=== PATIENT | male | born 1965 | race Caucasian/White ===

== ENCOUNTER 2018-10-19 23:08 | Emergency (ER) | payer OTHER ==
[~2018-10-19] VITALS: Ht 180.3 cm; Wt 86.2 kg
[~2018-10-19 23:08] MED LIST: Aldactone25 MG; Cipro500 MG PO; DOCU100 PO; Flagyl500 MG PO; IBUP600 PO; LACT10SY; LACT10SY PO; LEVO-T25 MCG; SPIR25 PO; TRAM50; [UNRECOGNIZED DRUG - REMARK]
[2018-10-19] MEDS ORDERED: OXYC5 PO (23:35)
[2018-10-19] MEDS ORDERED: Spironolactone25 MG PO (23:35)
[2018-10-20 00:05] LABS: BASOPHILS ABSOLUTE AUTO 0.02 K/mm3 (0.00-0.23); BASOPHILS PERCENT AUTO 1 % (0-2); EOSINOPHILS ABSOLUTE AUTO 0.11 K/mm3 (0.00-0.68); EOSINOPHILS PERCENT AUTO 3 % (0-6); Hematocrit 31.3 % (37.0-53.0); Hemoglobin 10.9 g/dL (13.5-17.5); IMMATURE GRAN ABSOLUTE AUTO 0.02 K/mm3 (0.00-0.10); IMMATURE GRAN PERCENT AUTO 1 % (0-1); LYMPHOCYTES ABSOLUTE AUTO 0.56 K/mm3 (0.84-5.20); LYMPHOCYTES PERCENT AUTO 15 % (21-46); MONOCYTES ABSOLUTE AUTO 0.29 K/mm3 (0.16-1.47); MONOCYTES PERCENT AUTO 8 % (4-13); Mean Corpuscular HGB 33.3 pg (26.0-34.0); Mean Corpuscular HGB Conc 34.8 g/dL (31.5-36.5); Mean Corpuscular Volume 96 fL (80-100); NEUTROPHILS PERCENT AUTO 73 % (41-73); RDW Coefficient Variation 13.9 % (11.7-14.2); RDW Standard Deviation 49.1 fL (35.1-46.3); Red Blood Cell Count 3.27 M/mm3 (4.30-5.90)
[2018-10-20 00:07] LABS: Platelet Count 40 K/mm3 (150-400)
[2018-10-20 00:17] LABS: International Normalized Ratio 1.28; Prothrombin Time Results 13.3 Sec (9.7-11.5)
[2018-10-20 00:24] LABS: Alanine Aminotransfer (ALT/SGP 109 U/L (12-78); Albumin, Blood 2.4 g/dL (3.4-5.0); Albumin/Globulin Ratio 0.5 (0.8-1.8); Alk Phos 126 U/L (50-136); Anion Gap 4 mmol/L (6-16); Aspartate Aminotrans (AST/SGOT 115 U/L (12-37); Bilirubin, Total 1.8 mg/dL (0.1-1.0); Blood Urea Nitrogen 15 mg/dL (8-24); Bun/Creatinine Ratio 19.4 (12.0-20.0); CO2, Blood 32 mmol/L (21-32); Calcium, Blood 8.1 mg/dL (8.5-10.1); Chloride, Blood 104 mmol/L (98-108); Creatinine, Blood 0.77 mg/dL (0.60-1.20); Globulin, Blood 4.8 g/dL (2.2-4.0); Glomerular Filtration Rate >60 (60-); Glucose, Blood 177 mg/dL (70-99); Potassium, Blood 4.9 mmol/L (3.5-5.5); Sodium, Blood 140 mmol/L (136-145); Total Protein, Blood 7.2 g/dL (6.4-8.2)
== END 2018-10-20 02:22 | disposition home or self-care (01) ==
LOC: ER 23:08
PROVIDERS: Physician Assistant
DX: S01.01XA Laceration without foreign body of scalp, initial encounter (principal); D69.6 Thrombocytopenia, unspecified; D61.818 Other pancytopenia; Z85.05 Personal history of malignant neoplasm of liver; F17.210 Nicotine dependence, cigarettes, uncomplicated; Z79.899 Other long term (current) drug therapy; V00.831A Fall from motorized mobility scooter, initial encounter
CPT/HCPCS: 12002; 36415; 70450; 74177; 80053; 85025; 85610; 90471; 90714; 99284-25; Q9967

== ENCOUNTER 2019-02-25 19:37 | Emergency (ER) | payer OTHER ==
[~2019-02-25] VITALS: Ht 180.3 cm; Wt 87.5 kg
[~2019-02-25 19:37] MED LIST changes: +OXYC5 PO; +Spironolactone25 MG PO
[2019-02-25] MEDS ORDERED: Lasix20 MG (20:12)
[2019-02-26] MEDS ORDERED: ONDA4ODT MM (18:55)
[2019-02-26] MEDS ORDERED: Roxicodone5 MG PO (18:55)
[2019-03-03] MEDS ORDERED: LACT10SY PO (09:19)
== END 2019-02-25 20:25 | disposition left against medical advice (07) ==
LOC: ER 19:37
DX: Z53.21 Procedure and treatment not carried out due to patient leaving prior to being seen by health care provider (principal)

== ENCOUNTER 2019-02-26 14:28 | Emergency (ER) | payer OTHER ==
[~2019-02-26] VITALS: Ht 180.3 cm; Wt 86.2 kg
[~2019-02-26 14:28] MED LIST changes: +Lasix20 MG
[2019-02-26 15:43] LABS: BASOPHILS ABSOLUTE AUTO 0.02 K/mm3 (0.00-0.23); BASOPHILS PERCENT AUTO 1 % (0-2); EOSINOPHILS ABSOLUTE AUTO 0.05 K/mm3 (0.00-0.68); EOSINOPHILS PERCENT AUTO 2 % (0-6); Hematocrit 33.5 % (37.0-53.0); Hemoglobin 11.6 g/dL (13.5-17.5); IMMATURE GRAN ABSOLUTE AUTO 0.01 K/mm3 (0.00-0.10); IMMATURE GRAN PERCENT AUTO 0 % (0-1); LYMPHOCYTES ABSOLUTE AUTO 0.54 K/mm3 (0.84-5.20); LYMPHOCYTES PERCENT AUTO 17 % (21-46); MONOCYTES ABSOLUTE AUTO 0.29 K/mm3 (0.16-1.47); MONOCYTES PERCENT AUTO 9 % (4-13); Mean Corpuscular HGB 32.1 pg (26.0-34.0); Mean Corpuscular HGB Conc 34.6 g/dL (31.5-36.5); Mean Corpuscular Volume 93 fL (80-100); Mean Platelet Volume 10.9 fL (9.1-12.4); NEUTROPHILS ABSOLUTE AUTO 2.22 K/mm3 (1.96-9.15); NEUTROPHILS PERCENT AUTO 71 % (41-73); RDW Standard Deviation 51.1 fL (35.1-46.3); Red Blood Cell Count 3.61 M/mm3 (4.30-5.90); White Blood Cell Count 3.13 K/mm3 (4.00-11.30)
[2019-02-26 15:48] LABS: Platelet Count 49 K/mm3 (150-400)
[2019-02-26 15:59] LABS: Alanine Aminotransfer (ALT/SGP 167 U/L (12-78); Albumin, Blood 2.1 g/dL (3.4-5.0); Albumin/Globulin Ratio 0.4 (0.8-1.8); Alk Phos 163 U/L (50-136); Anion Gap 4 mmol/L (6-16); Aspartate Aminotrans (AST/SGOT 238 U/L (12-37); Bilirubin, Total 1.8 mg/dL (0.1-1.0); Blood Urea Nitrogen 15 mg/dL (8-24); Bun/Creatinine Ratio 22.7 (12.0-20.0); CO2, Blood 28 mmol/L (21-32); Calcium, Blood 8.1 mg/dL (8.5-10.1); Chloride, Blood 104 mmol/L (98-108); Creatinine, Blood 0.66 mg/dL (0.60-1.20); Globulin, Blood 5.2 g/dL (2.2-4.0); Glomerular Filtration Rate >60 (60-); Glucose, Blood 257 mg/dL (70-99); Potassium, Blood 3.9 mmol/L (3.5-5.5); Sodium, Blood 136 mmol/L (136-145); Total Protein, Blood 7.3 g/dL (6.4-8.2)
[2019-02-26] MEDS ORDERED: ONDA4ODT MM (18:55)
[2019-02-26] MEDS ORDERED: Roxicodone5 MG PO (18:55)
[2019-03-03] MEDS ORDERED: LACT10SY PO (09:19)
== END 2019-02-26 20:30 | disposition home or self-care (01) ==
LOC: ER 14:28
PROVIDERS: Physician Assistant
DX: K70.31 Alcoholic cirrhosis of liver with ascites (principal); F17.210 Nicotine dependence, cigarettes, uncomplicated; Z79.899 Other long term (current) drug therapy
CPT/HCPCS: 36415; 80053; 83690; 85025; 93005; 93010; 96374; 96375; 99284-25; J2405; J3010

== ENCOUNTER 2019-03-07 13:35 | Day surgery (SDC) | payer OTHER ==
[~2019-03-07] VITALS: Ht 180.3 cm; Wt 80.3 kg
[~2019-03-07 13:35] MED LIST changes: +ONDA4ODT MM; +Roxicodone5 MG PO
--- NOTE | 2019-03-07 15:05 | NUR ---
03/07/19 150Giuliana [place] O2 10L VIA POM MASK
== END 2019-03-07 15:49 | disposition home or self-care (01) ==
LOC: ORSCSDS 13:35
PROVIDERS: Internal Medicine Gastroenterology
PROC: 0DJ08ZZ Inspection of Upper Intestinal Tract, Via Natural or Artificial Opening Endoscopic (ICD-10-PCS; principal; 2019-03-07 14:45)
DX: K74.60 Unspecified cirrhosis of liver (principal); I85.00 Esophageal varices without bleeding; K76.6 Portal hypertension; K31.89 Other diseases of stomach and duodenum; Z79.899 Other long term (current) drug therapy
CPT/HCPCS: J2250; J2704; J7120

== ENCOUNTER 2019-05-03 13:21 | Inpatient (IN) | payer OTHER ==
[~2019-05-03] VITALS: Ht 167.6 cm; Wt 78.3 kg
[2019-05-03 14:25] LABS: BASOPHILS ABSOLUTE AUTO 0.02 K/mm3 (0.00-0.23); BASOPHILS PERCENT AUTO 1 % (0-2); EOSINOPHILS ABSOLUTE AUTO 0.07 K/mm3 (0.00-0.68); EOSINOPHILS PERCENT AUTO 2 % (0-6); Hemoglobin 12.7 g/dL (13.5-17.5); IMMATURE GRAN ABSOLUTE AUTO 0.01 K/mm3 (0.00-0.10); IMMATURE GRAN PERCENT AUTO 0 % (0-1); International Normalized Ratio 1.15; LYMPHOCYTES ABSOLUTE AUTO 0.65 K/mm3 (0.84-5.20); LYMPHOCYTES PERCENT AUTO 18 % (21-46); MONOCYTES ABSOLUTE AUTO 0.26 K/mm3 (0.16-1.47); MONOCYTES PERCENT AUTO 7 % (4-13); Mean Corpuscular HGB 33.1 pg (26.0-34.0); Mean Corpuscular HGB Conc 36.3 g/dL (31.5-36.5); Mean Corpuscular Volume 91 fL (80-100); NEUTROPHILS ABSOLUTE AUTO 2.65 K/mm3 (1.96-9.15); NEUTROPHILS PERCENT AUTO 72 % (41-73); NRBC ABSOLUTE 0.02 K/mm3 (0.00-0.02); NRBC Auto 0.5 /100 WBC (0.0-0.2); Prothrombin Time Results 12.2 Sec (9.7-11.5); RDW Coefficient Variation 14.6 % (11.7-14.2); RDW Standard Deviation 49.1 fL (35.1-46.3); Red Blood Cell Count 3.84 M/mm3 (4.30-5.90); White Blood Cell Count 3.66 K/mm3 (4.00-11.30)
[2019-05-03 14:26] LABS: Source, Urine Clean Catch
[2019-05-03 14:31] LABS: Platelet Count 36 K/mm3 (150-400)
[2019-05-03 14:33] LABS: Alanine Aminotransfer (ALT/SGP 71 U/L (12-78); Albumin, Blood 2.4 g/dL (3.4-5.0); Albumin/Globulin Ratio 0.5 (0.8-1.8); Alk Phos 138 U/L (50-136); Anion Gap 5 mmol/L (6-16); Aspartate Aminotrans (AST/SGOT 81 U/L (12-37); Bilirubin, Total 2.3 mg/dL (0.1-1.0); Blood Urea Nitrogen 17 mg/dL (8-24); Bun/Creatinine Ratio 18.3 (12.0-20.0); CO2, Blood 28 mmol/L (21-32); Calcium, Blood 8.9 mg/dL (8.5-10.1); Chloride, Blood 103 mmol/L (98-108); Creatinine, Blood 0.93 mg/dL (0.60-1.20); Ethanol (Alcohol), Blood, Med <3 mg/dL; Globulin, Blood 5.3 g/dL (2.2-4.0); Glomerular Filtration Rate >60 (60-); Glucose, Blood 387 mg/dL (70-99); Sodium, Blood 136 mmol/L (136-145); Total Protein, Blood 7.7 g/dL (6.4-8.2); Troponin I <0.015 ng/mL (0.000-0.040)
[2019-05-03 14:34] LABS: Bilirubin, Urine Neg (Neg); Blood, Urine 4+ (Neg); Glucose Qualitative, Urine 4+ (Neg); Ketones, Urine 1+ (Neg); Leukocyte Esterase, Urine Neg (Neg); Nitrite, Urine Neg (Neg); Protein, Urine Neg (Neg); Urobilinogen, Urine 3+ (Normal)
[2019-05-03 14:46] LABS: U Amphetamine Screen DETECTED; U Barbituate Screen Not Detected; U Benzodiazapine Screen Not Detected; U Buprenorphine Screen Not Detected; U Cannabinoids Screen Not Detected; U Cocaine Screen Not Detected; U Methadone Screen Not Detected; U Methamphetamine Screen DETECTED; U Opiates Screen DETECTED; U Oxycodone Screen Not Detected; U Phencyclidine Screen Not Detected; U Propoxyphene Screen Not Detected
[2019-05-03 14:48] LABS: Appearance, Urine Clear (Clear); Color, Urine Yellow (P-Yellow)
[2019-05-03 14:50] LABS: Bacteria Not Seen /hpf; Mucus Light (0-Heavy); Squamous Epithelial Cells Few /hpf (Few); White Blood Cells, Urine Not Seen /hpf (0-5)
[2019-05-03] MEDS ORDERED: FURO40 PO (15:08)
[2019-05-03] MEDS ORDERED: ONDA4ODT MM (15:08)
[2019-05-03] MEDS ORDERED: SPIR50 PO (15:18)
[2019-05-03] MEDS ORDERED: Nadolol40 MG PO (15:18)
--- NOTE | 2019-05-03 17:00 | NUR ---
PT ARRIVED FROM ED HEAVILY SEDATED VEW SCORE OF 2 ON ADMIT VITALS. PT WILL MOVE EXTREMITIES A LITTLE WHEN STAFF MOVE HIM OTHERWISE UNRESPONSIVE. PT PLACED ON TELE, RECTAL TUBE IN PLACE. PT ADMITTED THROUGH THE ED FOR HEPATIC ENCEPHALOPATHY, PT TOX SCREEN POSSITIVE FOR METH AND ANPHETAMINE. PT RECIEVED A B52 IN THE ED AND IS CURRENTLY NOT CONCIOUS ENOUGH TO DETERMINE COGNITION ONLY OBJECTIVE ASSESSMENT AVAILABLE AT THIS TIME WILL CTM. PT CONTINUES TO BREATHE EVEN AND UNLABORED BREATHING AND IS RUNNING NSR AT 87 PER SWAGE TOOLSETTER.
--- NOTE | 2019-05-03 17:30 | NUR ---
WENT IN TO CHANGE THE PT WITH TRUCK DRIVER SUPERVISOR PT COMPLETELY LETHARGIC UNABLE TO ROUSE NO RESPONSE TO STERNAL RUB, EXTENSION TO PAIN, KVNG SCALE SCORE IS LOW D/T SEDATION. RECTAL TUBE IN PLACE WITH A SMALL AMOUNT OF STOOL NOTED IN IT AT THIS TIME.
--- NOTE | 2019-05-03 18:00 | NUR ---
PT HAS LACTULOSE ORDERED PT HOWEVER, PT DOES NOT HAVE A NG TUBE IN PLACE AND IS NOT CONCIOUS ENOUGH TO HAVE AN NG TUBE PLACED SAFELY WILL CALL DR TO CLARIFY THE ORDER FOR PT TO RECIEVE A DOSE OF LACTULOSE NOW. PT STILL UNRESPONSIVE, BREATHING E/U, NSR ON TELE.
--- NOTE | 2019-05-03 18:19 | NUR ---
CALLED DR SHERIDAN- PT LACTIC ACID RESULT CAME BACK CRITICALLY HIGH AT 3.0 PT CURRENTLY RUNNING LR AT 100ML/HR. PT REMAINS UNRESPONSIVE HE WAS WHEN HE ARRIVED. ORDER FOR LACTULOSE VIA TUBE NOT GIVEN IN THE ED. PT HAS ORDER FOR NG TUBE NOT IN PLACE PT IS UNCONCIOUS AND UNABLE TO SWALLOW TUBE. RECIEVED A VERBAL ORDER FOR LACTULOSE ENEMA. PLACED THE ORDER THOUGH ORDER MANAGEMENT WITH NIGHT RN TIMO PRESENT NIGHT RN WILL ADMINISTER.
--- NOTE | 2019-05-03 20:31 | NUR ---
SHIFT SUMMARY- BEDSIDE REPORT COMPLETED WITH NIGHT RN TIMO. PT STILL UNCONCIOUS KVNG SCORE OF 4 SINCE ADMIT. PT UNRESPONSIVE; EXTENSION TO PAIN RESPONSE; NO EYE OPENING. PT FLACCID ON ROLL AND CHANGE. DR AWARE OF PT LACTIC CRITICAL NIGHT RN IS AWARE WELL. LR RUNNING AT 100ML/HR.
[2019-05-04 00:42] LABS: PCO2 Arterial 25.6 mmHg (35-45); PO2 Arterial 91.1 mmHg (80-100); pH Blood Arterial 7.57 (7.35-7.45)
[2019-05-04 00:46] LABS: BASOPHILS ABSOLUTE AUTO 0.02 K/mm3 (0.00-0.23); BASOPHILS PERCENT AUTO 0 % (0-2); EOSINOPHILS ABSOLUTE AUTO 0.04 K/mm3 (0.00-0.68); EOSINOPHILS PERCENT AUTO 1 % (0-6); Hematocrit 32.9 % (37.0-53.0); Hemoglobin 12.3 g/dL (13.5-17.5); IMMATURE GRAN ABSOLUTE AUTO 0.02 K/mm3 (0.00-0.10); IMMATURE GRAN PERCENT AUTO 0 % (0-1); LYMPHOCYTES PERCENT AUTO 21 % (21-46); MONOCYTES ABSOLUTE AUTO 0.41 K/mm3 (0.16-1.47); MONOCYTES PERCENT AUTO 8 % (4-13); Mean Corpuscular HGB 33.3 pg (26.0-34.0); Mean Corpuscular HGB Conc 37.4 g/dL (31.5-36.5); Mean Corpuscular Volume 89 fL (80-100); Mean Platelet Volume 12.8 fL (9.1-12.4); NEUTROPHILS PERCENT AUTO 69 % (41-73); Platelet Count 58 K/mm3 (150-400); RDW Coefficient Variation 14.5 % (11.7-14.2); RDW Standard Deviation 46.5 fL (35.1-46.3); Red Blood Cell Count 3.69 M/mm3 (4.30-5.90); White Blood Cell Count 5.19 K/mm3 (4.00-11.30)
--- NOTE | 2019-05-04 00:50 | NUR ---
ASSUMED CARE NOTE: ASSUMED CARE OF PT @ 0050, RECEVIED REPORT FROM TIMO FREDERICK. PT ARRIVED TO UNIT VIA STRETCHER, ON RA. PT WAS NOT AROUSABLE TO VERBAL STIMULI, HOWEVER RESPONDING TO PAINFUL STIMULI. PT IS COARSE T/O. PT HAS BEEN IN SINUS RHYTHM TO SINUS TACH WITH HR BETWEEN 90-110. BOWEL TONES HEARD IN ALL FOUR QUADRANTS. RECTAL TUBE IN PLACE DRAINING DARK RED FECES, BLOOD CLOTS NOTED, AWARE. WILL BE TAKING PT TO CT SOON. HOSPITALIST NIECY AT BED SIDE.
[2019-05-04 01:05] LABS: Anion Gap 6 mmol/L (6-16); Blood Urea Nitrogen 17 mg/dL (8-24); Bun/Creatinine Ratio 18.1 (12.0-20.0); CO2, Blood 23 mmol/L (21-32); Calcium, Blood 8.6 mg/dL (8.5-10.1); Chloride, Blood 111 mmol/L (98-108); Creatinine, Blood 0.94 mg/dL (0.60-1.20); Glomerular Filtration Rate >60 (60-); Glucose, Blood 301 mg/dL (70-99); Magnesium, Blood 1.6 mg/dL (1.6-2.4); Potassium, Blood 4.6 mmol/L (3.5-5.5); Sodium, Blood 140 mmol/L (136-145)
--- NOTE | 2019-05-04 01:13 | NUR ---
2129 Received report from Alanis FREDERICK on day shift. Pt just recently admitted to floor. Pt is obtunded, respirtions 16, sl irregular respirations. Pt vew score was a 4, Pt is on tele. sinus tach rate low 100's. Pt is not responsive to fingernail press or sternal rub. Alanis states this is how he has been since admit. Pt is missing left eye. Rt pupil was reactive to light. Pt was given lactulose enema in stages through the rectal tube. Pt was able to hold some of the lactulose. Pt does have some marroon colored liquid in rectal tube after it was placed in ED, small amount. Will continue to monitor tube output. Pt is incontinent of lg amounts of urine. Did talk with sister Aubrie about pt status at this time.
--- NOTE | 2019-05-04 01:29 | NUR ---
05/03/19 2345 Karyn Wolf PIPE FITTER was asked to come see pt due to continued poor responsiveness. Pt does respond more to feet being touched and finger press, pt pulls back but does not talk or open eyes. Breath sounds remain course in upper airway. Pt continues to have irregular respirations. HOB has been up for safety. Vital signs and tele rhythm remain stable when rechecked at 2330. Pt was found by Karyn to not have a gag reflex at this time. 05/04/19 0020 Pt was administered Narcan 0.2mg and ramazicon 0.2mg IV with no change in pt condition. Pt is to be transferred to ICU 3. Report given to Ni FREDERICK. Pt transferred in bed with all belongings. Sister Aubrie was notified of pt being moved to ICU for more intensive care needs.
--- NOTE | 2019-05-04 01:30 | NUR ---
URINARY CATH INSERTED, PT TOLERATED WELL. UA SAMPLE SENT TO LAB.
[2019-05-04 01:41] LABS: Source, Urine Catheter
[2019-05-04 01:42] LABS: Bilirubin, Urine Neg (Neg); Blood, Urine 3+ (Neg); Glucose Qualitative, Urine 1+ (Neg); Ketones, Urine 2+ (Neg); Leukocyte Esterase, Urine 1+ (Neg); Nitrite, Urine Neg (Neg); Protein, Urine 2+ (Neg); Urobilinogen, Urine 3+ (Normal)
[2019-05-04 01:43] LABS: Appearance, Urine Clear (Clear); Color, Urine Yellow (P-Yellow)
[2019-05-04 01:52] LABS: Bacteria Few /hpf; Squamous Epithelial Cells Few /hpf (Few)
--- NOTE | 2019-05-04 02:21 | NUR ---
CALLED REGARDING ELEVATED LACTIC ACID. ORDERS GIVEN TO ADMINISTER ANOTHER 0.4 OF NARCAN IV. BANANA BAG INFUSING AT 200ML/HR
--- NOTE | 2019-05-04 03:20 | NUR ---
CALLED DR. SHI REGARDING PT NOT RESPONDING TO NARCAN , AND PT'S INABILTY TO PROTECT AIRWAY. PLAN IS TO INTUBATE PT SHORTLY.
[2019-05-04 05:03] LABS: BASOPHILS ABSOLUTE AUTO 0.02 K/mm3 (0.00-0.23); BASOPHILS PERCENT AUTO 0 % (0-2); EOSINOPHILS ABSOLUTE AUTO 0.05 K/mm3 (0.00-0.68); EOSINOPHILS PERCENT AUTO 1 % (0-6); Hematocrit 31.5 % (37.0-53.0); Hemoglobin 11.6 g/dL (13.5-17.5); IMMATURE GRAN ABSOLUTE AUTO 0.01 K/mm3 (0.00-0.10); IMMATURE GRAN PERCENT AUTO 0 % (0-1); LYMPHOCYTES ABSOLUTE AUTO 1.01 K/mm3 (0.84-5.20); LYMPHOCYTES PERCENT AUTO 20 % (21-46); MONOCYTES ABSOLUTE AUTO 0.41 K/mm3 (0.16-1.47); MONOCYTES PERCENT AUTO 8 % (4-13); Mean Corpuscular HGB 33.3 pg (26.0-34.0); Mean Corpuscular HGB Conc 36.8 g/dL (31.5-36.5); Mean Corpuscular Volume 91 fL (80-100); Mean Platelet Volume 12.4 fL (9.1-12.4); NEUTROPHILS ABSOLUTE AUTO 3.66 K/mm3 (1.96-9.15); NEUTROPHILS PERCENT AUTO 71 % (41-73); Platelet Count 57 K/mm3 (150-400); RDW Coefficient Variation 14.6 % (11.7-14.2); RDW Standard Deviation 48.5 fL (35.1-46.3); Red Blood Cell Count 3.48 M/mm3 (4.30-5.90); White Blood Cell Count 5.16 K/mm3 (4.00-11.30)
[2019-05-04 05:17] LABS: Anion Gap 7 mmol/L (6-16); Blood Urea Nitrogen 18 mg/dL (8-24); Bun/Creatinine Ratio 18.1 (12.0-20.0); CO2, Blood 20 mmol/L (21-32); Calcium, Blood 8.3 mg/dL (8.5-10.1); Chloride, Blood 112 mmol/L (98-108); Glomerular Filtration Rate >60 (60-); Glucose, Blood 377 mg/dL (70-99); Potassium, Blood 4.3 mmol/L (3.5-5.5); Sodium, Blood 139 mmol/L (136-145)
--- NOTE | 2019-05-04 05:33 | NUR ---
SHIFT SUMMARY: PT IS INTUBATED AND SEDATED WITH PROPOFOL @ 30MCG/KG/HR. VENT SETTINGS @ AC16/500/5/30%, SPO2 ABOVE 90% PT IS HAVING MODERATE AMOUNTS OF BROWN SPUTUM. OG TUBE IN PLACE, PLACEMENT VERIFIED BY . PT RESPONDS TO PAINFUL STIMULI. FIRST DOSE OF LACTOLOSE GIVEN. BOWEL TONES HEARD IN ALL FOUR QUADRANTS. HERNANDEZ PLACED, MAHNAZ/ORANGE URINE NOTED. RECTAL TUBE DRAINING DARK RED/ORANGE LIQUID STOOL. SWR IN PLACE. BANANA BAG RUNNING @ 200ML/HR, LR @ 75ML/HR. BED AT LOWEST LEVEL, CALL LIGHT WITHIN REACH.
--- NOTE | 2019-05-04 07:15 | NUR ---
ASSUMED CARE: REPORT RECEIVED FROM KJ Santos RN. ASSUMED CARE OF THIS PT AT APPROX 0700. ON ASSESSMENT, THE PT IS SEDATED & INTUBATED. HE WITHDRAWS MINIMALLY TO PAINFUL STIMULUS W/ PROPOFOL INFUSING FOR SEDATION. LS ARE COARSE T/O, VENT SETTINGS: AC 16/500/5/30% W/ O2 SATS > 92%. MONITOR SHOWS SR-ST W/ HR 90-110s, BP STABLE. OGT IN PLACE, CLAMPED BUT OKAY TO GIVE PT MEDS THROUGH PER REPORT. RECTAL TUBE IN PLACE DRAINING DARK BROWN-BLACK LIQUID STLS. VARIOUS ABRASIONS TO SKIN SURFACE BUT OVERALL INTACT, DRY. WILL CONTINUE TO MONITOR & UPDATE NEEDED.
--- NOTE | 2019-05-04 09:59 | NUR ---
DR CARRILLO: PROVIDER AT BEDSIDE TO SEE PT. WOULD LIKE SEDATION TO BE MINIMIZED IF POSSIBLE. CEFTRIAXONE ORDERS PLACED. PT NOW ON SPONTANEOUS W/ PS 5 & 25% FIO2. CONTINUE LACTULOSE REGIMEN.
--- NOTE | 2019-05-04 19:07 | NUR ---
SHIFT SUMMARY: NO ACUTE CHANGES SINCE PRIOR UPDATES. PT REMAINS INTUBATED & SEDATED W/ PROPOFOL. HE IS MOVING EXTREMITIES SPONTANEOUSLY MORE THAN THIS AM, BUT IS NOT PURPOSEFUL IN MOVEMENTS. LS ARE COARSE T/O BUT IMPROVED, VENT ON SPONTANEOUS W/ PS 5 & 25% FIO2. MONITOR SHOWS SR-ST W/ HR 90-110s, BP STABLE. OGT CLAMPED & RECTAL TUBE CONTINUES DRAINING DARK-MAROON LIQUID STLS. HERNANDEZ PATENT/ DRAINING. SKIN CONDITION UNCHANGED. WILL CONTINUE TO MONITOR & REPORT OFF TO ONCOMING RN.
--- NOTE | 2019-05-04 19:30 | NUR ---
ASSUMED CARE NOTE: ASSUMED CARE OF PT AT 1900, RECEVIED REPORT FROM ADDY FREDERICK. PT ON VENT WITH SETTINGS : SPONTANEOUS WITH PS OF 5 , AND FIO2 OF 25%, SPO2 ABOVE 95% PT IS HAVING THIN BROWN SPUTUM. PT IS ONLY RESPONDING TO PAINFUL STIMULI. PT IS BEING SEDATED WITH 40MCG/KG/MIN OF PROPOFOL, GOAL IS TO TITRATE SEDATION TO ASSESS MENTATION PER ORDERS. PT IN NSR WITH HR 80, AT TIMES HR JUMPS INTO THE 110'S WITH REPOSITIONING. RECTAL TUBE IN PLACE, DRAINGING DARK MAROON LIQUID. HERNANDEZ DRAINING ORANGE COLORED URINE. BILAT SWR IN PLACE, WILL CONTINUE TO MONITOR PT T/O SHIFT
[2019-05-05 04:05] LABS: Anion Gap 9 mmol/L (6-16); Blood Urea Nitrogen 19 mg/dL (8-24); Bun/Creatinine Ratio 18.8 (12.0-20.0); CO2, Blood 21 mmol/L (21-32); Calcium, Blood 8.7 mg/dL (8.5-10.1); Chloride, Blood 112 mmol/L (98-108); Creatinine, Blood 1.01 mg/dL (0.60-1.20); Glomerular Filtration Rate >60 (60-); Glucose, Blood 235 mg/dL (70-99); Potassium, Blood 3.9 mmol/L (3.5-5.5); Sodium, Blood 142 mmol/L (136-145)
--- NOTE | 2019-05-05 04:30 | NUR ---
SEDATION VACATION: PT HAS BEEN OFF OF PROPOFOL SINCE 329. PT IS RESPONSIVE TO PAIN. HE DID NOT OPEN EYES SPONTANEOUSLY, NOR RESPOND TO VERBAL STIMULI. PT WILL MAKE NON-PURPOSFUL MOVMENTS FROM TIME TO TIME. PT IS TOLERATING VENT, THEREFORE SEDATION WILL REMAIN OFF.
--- NOTE | 2019-05-05 05:00 | NUR ---
UPDATED PT'S SISTER SHIRLEY NICOLETHERS ON HIS CONDITION. SHIRLEY GAVE CONSENT FOR PT TO RECEIVE BLOOD AND BLOOD PRODUCTS TRANSFUSIONS. CHARGE NURSE RONNELL WITNESSED CONSENT.
[2019-05-05 05:13] LABS: PCO2 Arterial 27.2 mmHg (35-45); PO2 Arterial 94.1 mmHg (80-100); pH Blood Arterial 7.49 (7.35-7.45)
--- NOTE | 2019-05-05 06:14 | NUR ---
SHIFT SUMMARY: PT HAS BEEN OFF SEDATION SINCE 329, NO CHANGES IN MENTATION. PT TOLERATING VENT WITH NO SEDATION. WILL KEEP SEDATION ON OFF, TO SEE IF MENTATION IMPROVES. VENT SETTINGS REMAIN THE SAME: SPONTANEOUS PS5, FIO2 OF 25%, SPO2 AT 98%. PT IS HAVING MODERATE AMOUNTS OF ORAL SECREATIONS, SUCTIONING HAS BEEN REQUIRED Q1H. PT HAS ALSO BEEN HAVING GREEN NASAL SECRETIONS. PT HAS BEEN IN SIT T/O NIGHT WITH HR RANGINING FROM 90-115. PT RECEVIED TO DOSES OF LACTULOSE , LITTLE STOOL NOTED. PT HAS A RECTAL TUBE IN PLACE, SMALL AMOUNTS OF BROWN LIQUID NOTED. HERNANDEZ PATNET, DRAINING ORANGE/MAHNAZ URINE. BED AT LOWEST LEVEL, SWR IN PLACE. WILL CONTINUE TO MONITOR PT UNTIL REPORT IS GIVEN TO ONCOMING SHIFT
--- NOTE | 2019-05-05 07:45 | NUR ---
ASSUMED CARE: REPORT RECEIVED FROM KJ Santos RN. ASSUMED CARE OF THIS PT AT APPROX 0700. ON ASSESSMENT, THE PT REMAINS INTUBATED. PER REPORT, SEDATION VIA PROPOFOL HAS BEEN OFF SINCE 0330 THIS AM. PT JACOB, BUT IS NOT PURPOSEFUL IN MOVEMENTS. NO EYE OPENING NOTED, WITHDRAWS FROM PAINFUL STIMULUS. LS ARE DIM T/O, VENT ON SPONTANEOUS W/ PS 5 & 25% FIO2, O2 SATS > 92%. MONITOR SHOWS SR-ST W/ HR 90-110s, BP STABLE. RECTAL TUBE IN PLACE DRAINING DARK BROWN LIQUID STLS, MAROON COLORING TO STL IS NO LONGER SEEN. OGT CLAMPED, PER TUBE MEDS SCHEDULED. HERNANDEZ PATENT/ DRAINING DARK YELLOW/ORANGE URINE. SKIN UNCHANGED FROM PRIOR SHIFT, Q2H REPOSITIONING TO MAINTAIN SKIN INTEGRITY. WILL CONTINUE TO MONITOR & UPDATE NEEDED.
--- NOTE | 2019-05-05 07:55 | NUR ---
DR SHERIDAN: PROVIDER AT BEDSIDE TO EVAL PT. DISCUSSED PT's MENTATION & MINIMAL STL PRODUCTION W/ PROVIDER. HE STS NO CHANGES AT THIS TIME PER HOSPITALIST SERVICE, CONTINUE POC PER TROPHY ASSEMBLER.
--- NOTE | 2019-05-05 10:58 | NUR ---
DR WILLSON: PROVIDER AT BEDSIDE TO EVAL PT. ORDERS FOR CXR & AMMONIA LEVEL HAVE BEEN PLACED. INFORMED HER THAT PROPOFOL WAS RESTARTED AT DECREASED RATE OF 15 MCG/KG/HR AT 0940.
--- NOTE | 2019-05-05 15:52 | NUR ---
TUBE FEEDING: TUBE FEEDS INITIATED AT 1515 PER CREPE MAKER ORDERS. INITIAL RATE 25ML/HR, OKAY TO ADVANCE IN 8 HRS IF PT TOLERATING, 30 ML H2O FLUSH Q4H. FORULA IS PIVOT 1.5 IMMUNE.
--- NOTE | 2019-05-05 17:57 | NUR ---
SHIFT SUMMARY: NO ACUTE CHANGES SINCE PRIOR UPDATES. PT REMAINS INTUBATED & SEDATED W/ PROPOFOL, NOW AT 25 MCG/KG/HR FOR INCREASED RESTLESSNESS. PT W/ INCREASED MOVEMENT TO ALL EXTREMITIES & IS PICKING UP BUTTOCKS TO MOVE SELF AROUND IN BED FOR COMFORT, BUT IS OTHERWISE NOT PURPOSEFUL IN MOVEMENTS. HE CONTINUES NOT OPENING EYES OR FOLLOWING DIRECTION. LS DIM T/O, VENT ON SPONTANEOUS W/ PS 5 & 25% FIO2, O2 SATS > 92%. MONITOR SHOWS SR-ST W/ HR 90-110s, BP STABLE. OGT W/ TUBE FEEDS INFUSING AT 25 ML/HR & 30 ML H2O FLUSH Q4H. RECTAL TUBE PATENT/ DRAINING BROWN LIQUID STL. HERNANDEZ PATENT/ DRAINING DARK YELLOW-ORANGE URINE. WILL CONTINUE TO MONITOR & REPORT OFF TO ONCOMING RN.
--- NOTE | 2019-05-05 19:19 | NUR ---
Initial spiritual care visit: Mr. Dillon was alone in room and sedated. Per family request, I prayed for him at bedside. I will remain available to pt and family.
--- NOTE | 2019-05-05 21:31 | NUR ---
ASSUMPTION OF CARE ASSUMED CARE OF PT @ 1900, PT INTUBATED AND SEDATED WITH PROPOFOL (SEE FLOWSHEET), PT RESPONDS TO PAINFUL STIMULI, JACOB, NO PURPOSEFUL MOVEMENTS NOTED AT THIS TIME. VENT SET TO PS 5/5 FIO2 25%, PT TOLERATING WELL. MONITOR SHOWS SINUS RHYTHM, HR 90'S-110, BP STABLE. OG IN PLACE, TF INFUSING @ 25ml/hr, NO RESIDUALS. HERNANDEZ IN PLACE DRAINING CLEAR DARK YELLOW URINE.
[2019-05-06 03:47] LABS: BASOPHILS ABSOLUTE AUTO 0.03 K/mm3 (0.00-0.23); BASOPHILS PERCENT AUTO 1 % (0-2); EOSINOPHILS ABSOLUTE AUTO 0.13 K/mm3 (0.00-0.68); EOSINOPHILS PERCENT AUTO 2 % (0-6); Hematocrit 32.5 % (37.0-53.0); Hemoglobin 11.6 g/dL (13.5-17.5); IMMATURE GRAN ABSOLUTE AUTO 0.04 K/mm3 (0.00-0.10); IMMATURE GRAN PERCENT AUTO 1 % (0-1); LYMPHOCYTES ABSOLUTE AUTO 1.05 K/mm3 (0.84-5.20); LYMPHOCYTES PERCENT AUTO 19 % (21-46); MONOCYTES ABSOLUTE AUTO 0.57 K/mm3 (0.16-1.47); MONOCYTES PERCENT AUTO 10 % (4-13); Mean Corpuscular HGB 33.2 pg (26.0-34.0); Mean Corpuscular HGB Conc 35.7 g/dL (31.5-36.5); Mean Corpuscular Volume 93 fL (80-100); NEUTROPHILS ABSOLUTE AUTO 3.68 K/mm3 (1.96-9.15); NEUTROPHILS PERCENT AUTO 67 % (41-73); Platelet Count 52 K/mm3 (150-400); RDW Standard Deviation 51.4 fL (35.1-46.3); Red Blood Cell Count 3.49 M/mm3 (4.30-5.90)
[2019-05-06 03:48] LABS: Mean Platelet Volume 13.8 fL (9.1-12.4)
[2019-05-06 04:04] LABS: Magnesium, Blood 1.9 mg/dL (1.6-2.4)
[2019-05-06 04:05] LABS: Alanine Aminotransfer (ALT/SGP 57 U/L (12-78); Albumin/Globulin Ratio 0.4 (0.8-1.8); Alk Phos 95 U/L (50-136); Anion Gap 7 mmol/L (6-16); Aspartate Aminotrans (AST/SGOT 63 U/L (12-37); Bilirubin, Total 2.5 mg/dL (0.1-1.0); Blood Urea Nitrogen 20 mg/dL (8-24); Bun/Creatinine Ratio 23.7 (12.0-20.0); CO2, Blood 22 mmol/L (21-32); Calcium, Blood 8.1 mg/dL (8.5-10.1); Chloride, Blood 112 mmol/L (98-108); Creatinine, Blood 0.84 mg/dL (0.60-1.20); Glomerular Filtration Rate >60 (60-); Glucose, Blood 323 mg/dL (70-99); Sodium, Blood 141 mmol/L (136-145)
--- NOTE | 2019-05-06 06:25 | NUR ---
SHIFT SUMMARY NO ACUTE CHANGES THIS SHIFT, PT REMAINS INTUBATED AND SEDATED, PROPOFOL CURRENTLY INFUSING @ 35mcg/kg/min (SEE FLOWSHEET). VENT REMAINS ON PS 5/5 FIO2 25%, PT TOLERATES WELL. SEDATION VACATION THIS SHIFT, PT BECAME AGITATED IN BED, LEGS RESTLESS, PULLING AT RESTRAINTS, LIFTING HEAD OFF OF BED, NOT OPENING EYES OR FOLLOWING DIRECTIONS. MONITOR SHOWS SINUS RHYTHM, HR 90'S-110, BP STABLE. PT AFEBRILE T/O SHIFT. OG TUBE IN PLACE, INFUSING TF @ GOAL RATE OF 35ml/hr, LOW RESIDUALS. RECTAL TUBE IN PLACE, MINIMAL OUTPUT. HERNANDEZ IN PLACE DRAINING DARK YELLOW TO ORANGE URINE. Q6H CBG'S TRENDING UP, INSULIN COVERAGE PROVIDED ORDERED.
--- NOTE | 2019-05-06 07:15 | NUR ---
BEGINNING OF SHIFT Assumed care at 0700. Bedside report recieved from Swapna FREDERICK. Pt intubated with 8.0 cm ETT, 26 cm JUANJOSE. On ventilator PS 5/5, FiO2 25%. Sedated with propofol at 35 mcg/kg/min. Pt responsive to painful stimulus. OG tube with TF per orders. Rene catheter in place for strict measurement of fluid intake and output. Rectal tube in place draining liquid green stool.
--- NOTE | 2019-05-06 08:30 | NUR ---
UPDATE GIVEN TO SISTER Pt's sister, Aubrie, called unit for update. Update provided. Questions answered to family satisfaction.
--- NOTE | 2019-05-06 10:00 | NUR ---
PROPOFOL ON STANDBY FOR SEDATION VACATION Pt placed in TAT cufffs x 4 extremities as patient is kicking legs in bed, sliding down in bed, and attempting to reach mouth to restrained hand. Soft restraints not appropriate as velcro begins to release when pt moves extremities in agitation.
--- NOTE | 2019-05-06 10:30 | NUR ---
DR WILLSON AT BEDSIDE Propofol remains on standby. Pt withdraws from painful stimulus, but does not open eyes. Pt does not follow commands. Pt is agitated. Plan to start precedex
--- NOTE | 2019-05-06 11:45 | NUR ---
AGITATION Precedex at 1.4 mcg/kg/hr. Pt remains agitated, thrashing all extremities and attempting to reach mouth to restrained hand. Dr Gaines states plan for fentanyl IVP for agitation.
--- NOTE | 2019-05-06 13:39 | NUR ---
UPDATE Pt calm, resting in bed. Receiving 0.7 mcg/kg/hr precedex. BP and HR lower than this morning. Dr Liana mckeon.
--- NOTE | 2019-05-06 15:00 | NUR ---
EKG OBTAINED Pt had [address] elevation on heart monitor. Dr Gaines notified. EKG obtained. EKG shows normal sinus rhtyhm with no ST elevations.
--- NOTE | 2019-05-06 16:00 | NUR ---
MENTATION DISCUSSED WITH DR WILLSON Pt minimally responsive. Difficult to arouse. Cough and gag reflexes present but not as strong as previously noted. Pt no longer pulling on restraints. Discussed ammonia levels and new orders for lactulose. Provider states plan for CT head tomorrow if no neurological improvement noted.
--- NOTE | 2019-05-06 17:50 | NUR ---
SUMMARY At this time, pt is sedated with 0.2 mcg/kg/hr. Very difficult to arouse. Responsive to painful stimulus. Will consider titrating precedex off. Dr Gaines aware of pt's mental status. Pt has been on spontaneous mode with pressure support 5/5 and 25% FiO2. Lungs clear t/o with dim bases. Pt initially ST per monitor, but currently sinus rhtyhm. Oliguric, with only 275 mL of dark wei urine from catheter this shift. Rectal tube remains in place, draining liquid green stool. Pt receiving continuous feeds through OG tube. Maximum residual measured this shift was 100 mL at 1600 this afternoon. Will continue to closely monitor until care handoff and bedside report with oncoming RN.
--- NOTE | 2019-05-06 23:06 | NUR ---
ASSUMED CARE OF PT AT 1900. RECEIVED REPORT FROM OFFGOING RN. I-TRACE PERFORMED, KVO LINE ADDED TO PRECEDEX GTT, IN LOWER R FA IV. PT WAKENS EASILY DURING ORAL CARE, BUT NOT TO VOICE, AND MINIMAL TO PAIN. PT TOLERATING VENT ON SPONTANEOUS SETTING, PEEP 5, FIO2 25%. PT SHOWING MORE WAKEFULNESS, BUT NOT FOLLOWING ANY COMMANDS, AND PULLS ON WRIST RESTRAINTS.
[2019-05-07 03:30] LABS: Base Excess Venous 0.9 mmol/L; Bicarbonate Venous 25.5 mmol/L (24.0-30.0); PCO2 Venous 32.1 mmHg (38-42); PO2 Venous 85.9 mmHg (38-42); pH Blood Venous 7.49 (7.34-7.37)
[2019-05-07 03:37] LABS: BASOPHILS ABSOLUTE AUTO 0.02 K/mm3 (0.00-0.23); BASOPHILS PERCENT AUTO 1 % (0-2); EOSINOPHILS ABSOLUTE AUTO 0.07 K/mm3 (0.00-0.68); EOSINOPHILS PERCENT AUTO 2 % (0-6); Hematocrit 27.7 % (37.0-53.0); Hemoglobin 9.8 g/dL (13.5-17.5); IMMATURE GRAN ABSOLUTE AUTO 0.01 K/mm3 (0.00-0.10); IMMATURE GRAN PERCENT AUTO 0 % (0-1); LYMPHOCYTES ABSOLUTE AUTO 0.46 K/mm3 (0.84-5.20); LYMPHOCYTES PERCENT AUTO 15 % (21-46); MONOCYTES ABSOLUTE AUTO 0.31 K/mm3 (0.16-1.47); MONOCYTES PERCENT AUTO 10 % (4-13); Mean Corpuscular HGB 33.4 pg (26.0-34.0); Mean Corpuscular HGB Conc 35.4 g/dL (31.5-36.5); Mean Corpuscular Volume 95 fL (80-100); NEUTROPHILS ABSOLUTE AUTO 2.19 K/mm3 (1.96-9.15); NEUTROPHILS PERCENT AUTO 72 % (41-73); RDW Coefficient Variation 14.5 % (11.7-14.2); RDW Standard Deviation 49.7 fL (35.1-46.3); Red Blood Cell Count 2.93 M/mm3 (4.30-5.90); White Blood Cell Count 3.06 K/mm3 (4.00-11.30)
[2019-05-07 03:40] LABS: Mean Platelet Volume 13.1 fL (9.1-12.4)
[2019-05-07 03:41] LABS: Platelet Count 29 K/mm3 (150-400)
[2019-05-07 03:50] LABS: Anion Gap 5 mmol/L (6-16); Blood Urea Nitrogen 33 mg/dL (8-24); Bun/Creatinine Ratio 38.6 (12.0-20.0); CO2, Blood 24 mmol/L (21-32); Calcium, Blood 8.1 mg/dL (8.5-10.1); Chloride, Blood 112 mmol/L (98-108); Creatinine, Blood 0.86 mg/dL (0.60-1.20); Glomerular Filtration Rate >60 (60-); Glucose, Blood 274 mg/dL (70-99); Magnesium, Blood 2.2 mg/dL (1.6-2.4); Phosphorus, Blood 2.6 mg/dL (2.5-4.9); Potassium, Blood 4.6 mmol/L (3.5-5.5); Sodium, Blood 141 mmol/L (136-145)
--- NOTE | 2019-05-07 05:56 | NUR ---
PT BECAME VERY RESTLESS AROUND MIDNIGHT. PT GAINED ABILITY TO FOLLOW COMMANDS WITH A SMALL PROCESSING DELAY. FIRST ONE HAND BOTTLE FILLER, THEN OPPOSITE, THEN PUSHING WITH FEET. PT REPEATEDLY ATTEMPTING TO SELF-EXTUBATE. PT SEEMED UNCOMFORTABLE, FIGHTING/COUGHING ON VENT, MOVING LEGS AROUND BED RAPIDLY. FENTANYL DOSE GIVEN. DISCUSSED PLATELET LEVEL WITH ALSO RECEIVED ORDER TO EXTUBATE PT IF HE BECAME AGITATED AGAIN, AFTER REVIEWING SETTINGS WITH DR. PT DEEP BREATHING ON VENT, HIGH O2 SATS, CUFF LEAK PRESENT, STRONG COUGH AND GAG, RR 12 WITH [phone] ML TV. RECTAL TUBE UNKINKED AFTERWARDS, STILL NO OUTPUT. FREQUENT UNKINKING OF HERNANDEZ AFTER PT MOVEMENT, DRAINING AND PATENT.
--- NOTE | 2019-05-07 07:14 | NUR ---
ASSUMED CARE: RECEIVED REPORT FRO ENA RN. PT APPEARS TO BE RESTING WITH EVEN CHEST RISE AND FALL ON SPONTANIOUS SETTINGS. PT IS NOTED TO BE IN WRIST RESTRAINTS AND NOT CURRENTLY PULLING AT THEM. WILL CONTINUE TO MONITOR AND ASSESS FURTHER.
--- NOTE | 2019-05-07 08:49 | NUR ---
ASSESSMENT: DURING ASSESSMENT PT IS NOTED TO BE RESTING WITH EVEN CHEST RISE AND FALL. PT FOLLOWS COMMANDS MOVING FEET, SQUEEZING HANDS, AND OPEN HIS R EYE. OG TUBE APEPARS TO BE SECURED AND NO RESIDUAL NOTED AFTER A 30ML FLUSH. WILL CONTINUE TO MONITOR.
--- NOTE | 2019-05-07 09:37 | NUR ---
EXTUBATION: PT EXTUBATED AT APPROX 0930, PLACED 4L O2 VIA NC. PT WAS ABLE TO COUGH MODERATE AMOUNT OF THICK YELLOW GREEN SECREATIONS SUCTIONED OUT OF HIS MOUTH. KEPT PT ON PRECEDEX, BUT REDUCED IT TO 0.2 MCG/KG/HR WILL CONTINUE TO TITRATE DOWN TO OFF BASED ON PT LEVEL OF AGITATION. LEFT PT IN BILAT WRIST RESTRAINTS AT THIS TIME, WILL CONTINUE TO ASSESS FOR NEED. PT CALLS OUT FOR WATER, EDUCATED PT ON NEED TO WAIT ON WATER. PT ASKS WHAT HAPPENED ATTEMPTED TO EDUCATE ON EVENTS UP TO THIS POINT. DR WILLSON IN TO ASSESS PT AT THIS TIME.
--- NOTE | 2019-05-07 11:38 | NUR ---
WATER: PT CONTINUES TO REQUEST FOR WATER AND IS EDUCATED CONTINUOUSLY ON THE NEED TO WAIT AT LEAST 3 HOURS WILL DO BEDSIDE SWALLOW EVAL AT APPROX 1230. PT APPEARS TO BE DROUSY AT THIS TIME ALTHOUGH PRECEDEX IS OFF WILL WAIT TO SEE IF HE CLEARS UP MORE.
--- NOTE | 2019-05-07 15:56 | NUR ---
FAMILY: SISTER SHIRLEY CALLED TO SEE HOW HE IS DOING. GAVE SISTER AN UPDATE AND TRANSFERED PHONECALL INTO THE ROOM. PT IS TALKING ON THE PHONE AT THIS TIME. APPEARS TO BE TEARFULL WHILE TALKING ON THE PHONE.
--- NOTE | 2019-05-07 17:16 | NUR ---
SHIFT SUMMARY: PT WAS EXTUBATED TODAY, TEARFUL AND ANXIOUS OFF AND ON T/O THE DAY. LUNGS APPEAR TO BE CLEAR AND PT HAS TOLLERATED RA SINCE SHORTLY AFTER BEING EXTUBATED. PT HAD BEDSIDE SWALLOW EVALUATION AND PASSED. PT ADVANCED TO ADA DIET WITH FINGER FOODS HAS TOLLERATED WELL T/O THE DAY. PT REQUESTED A PEN AND PAPER TO WRITE A LETTER TO HIS GIRLFRIEND, AQUIRED AN ENVELOPE AND STAMP TO MAIL IT OFF. WILL CONTINUE TO MONITOR AND REPORT TO ONCOMING RN.
--- NOTE | 2019-05-07 19:00 | NUR ---
ASSUMPTION OF CARE: RECIEVED REPORT FROM JIHAN FREDERICK, PATIENT ALERT AND ORIENTED AND RESPONDING WELL TO ALL QUESTIONS. PATIENT MED STATUS, TELEMETRY REMOVED PER ORDERS, RIGHT LEG MEPELEX IN PLACE, PATIENT MOVING WELL IN BED WITHOUT ASSIST.
--- NOTE | 2019-05-08 01:49 | NUR ---
BLOOD GLUCOSE: APPROX 2030 PATIENT BLOOD SUGAR LEVEL WAS 400, PATIENT ALSO HAD JUST FINISHED EATING 2.5 DINNER TRAYS OF FOOD. COVERAGE PROVIDED AND PATIENT MONITORED CLOSELY. AT APPROX 2330 PATIENT BLOOD SUGAR WAS 306 AND PATIENT ASKING FOR MORE SNACKS. PATIENT WAS INSTRUCTED TO WAIT UNTIL HIS BLOOD SUGAR WAS BETTER UNDER CONTROL, IF BLOOD SUGAR IS STILL >300 AT THE 0400 TIME THEN PROVIDER WILL BE INFORMED. PATIENT VSS.
[2019-05-08 04:20] LABS: Anion Gap 4 mmol/L (6-16); Blood Urea Nitrogen 31 mg/dL (8-24); Bun/Creatinine Ratio 37.9 (12.0-20.0); CO2, Blood 27 mmol/L (21-32); Calcium, Blood 8.7 mg/dL (8.5-10.1); Chloride, Blood 110 mmol/L (98-108); Creatinine, Blood 0.82 mg/dL (0.60-1.20); Glomerular Filtration Rate >60 (60-); Glucose, Blood 192 mg/dL (70-99); Phosphorus, Blood 3.1 mg/dL (2.5-4.9); Potassium, Blood 3.8 mmol/L (3.5-5.5); Sodium, Blood 141 mmol/L (136-145)
--- NOTE | 2019-05-08 04:40 | NUR ---
SHIFT SUMMARY: PATIENT EMOTIONAL AT BEGINNING OF SHIFT, HAPPY TWORD MIDDLE OF SHIFT AND CONFUSED AT END OF SHIFT. PATIENT DID NOT SLEEP WELL, ASKING IF THE [place] [facility]IR[facility] WAS IN THE HOSPITAL AND ASKING TO HAVE THE BLANKET PULLED OVER HIS FACE SO HE WOULD NOT 'HAVE TO SEE THE CARNAGE'. SEVERAL ATTEMPTS WERE MADE TO EDUCATE AND SOOTH PATIENT FEARS WITH VERY SHORT LIVED SUCCESS. PATIENT THROWING KLEENEX BOX TO GET STAFF ATTENTION AND CLAPPING HIS HANDS. BLOOD SUGARS IMPROVING AFTER RESTRICTING HOW OFTEN PATIENT RECIEVED SNACKS. ALL OTHER VSS, BED LOW AND LOCKED, CALL LIGHT WITHIN REACH.
--- NOTE | 2019-05-08 08:00 | NUR ---
ASSUMED CARE RECEIVED REPORT FROM NOC RN. PT IS LYING IN BED AWAKE AND SOMEWHAT ALERT. HE IS ORIENTED TO THE TIME, SELF, SURROUNDINGS, AND SOMEWHAT THE SITUATION. HE IS ON ROOM AIR, AND APPEARS TO BE IN NO DISTRESS. HE HAS SCD'S IN PLACE. A PATENT AND DRAINING HERNANDEZ CATHETER. COMPLAINING OF A HEADACHE.
--- NOTE | 2019-05-08 11:58 | NUR ---
Met pt. [id number] up in a chair reports doing much better, [id number] pt. andoffered prayers.
--- NOTE | 2019-05-08 17:44 | NUR ---
Spiritual care note: Mr. iDllon was pleasant and appeared to enjoy companionship and children's counselor. He tells me that his plan is to move to his mom's in [place] upon discharge. He wants to quit drinking and using drugs, and expresses understanding that most of his life's problems have been caused by his addiction. He has a 15 month-old dtr who was removed from his home b/c of drug use. This child now lives with his mom. He was often tearful and expressed deep remorse. He responded well to thereaputic listening and gentle children's counselor. He appears genuine in his desire for life-style change. Mr. Dillon will benefit from continued encouragement towards sobriety. We had an easy rapport. Network Contract Manager Services will remain available.
--- NOTE | 2019-05-08 18:25 | NUR ---
SHIFT SUMMARY PT HAD A GOOD DAY TODAY. HE IS ALERT AND ORIENTED TO SELF, SITUATION, SURROUNDINGS, AND DATE. HE IS SOFT SPOKEN (WHICH IS BASELINE ACCORDING TO SISTER), SLOW TO RESPOND, AND [place] IN HIS LEFT EAR. HE ALSO IS MISSING HIS LEFT EYE. HE IS A SLIGHTLY LABILE WITH HIS EMOTIONS. TODAY HE WAS VERY APPRECIATIVE, VERY EMOTIONAL ABOUT HIS CARE AND HIS FAMILY - CRYING A FEW TIMES THROUGHOUT DAY - REPEATEDLY THANKING STAFF. HE GOT UP FROM THE BED TO THE CHAIR, AND TOILET TODAY AND DID WELL. HE WORKED WITH PT TODAY AND DID WELL. LOTS OF PROGRESS AFTER BEING EXTUBATED YESTERDAY. ALTHOUGH HE HAS STRENGTH IN HIS LEGS, HE LACKS FINE MOTOR SKILLS IN HIS HANDS, AND IS VERY WEAK - BUT HIS BALLOON ARTIST WHEN COMMANDED TO SQUEEZE IS GOOD AND EQUAL. HE CANNOT HOLD THE PHONE UP TO HIS HEAD, AND SPILLS A LOT WHEN EATING. HIS HERNANDEZ WAS REMOVED TODAY, AND A CONDOM CATH WAS PLACED. HE IS SALINE LOCKED. BILATERAL SCD'S ON. ONE ISSUE TODAY IS HIS SUGARS, HE HAS Q4H CBG + SLIDING SCALE INSULIN. HIS SUGARS TODAY WERE 193, 291, AND 345. COVERED WITH INSULIN EACH TIME. HE DID HAVE SOME SUGARY FOOD. WILL PASS IT ON TO MONITOR HIS DIET MORE CLOSELY. HE REQUIRES A SOFT DIET, D/T NOT HAVING TEETH. SHIRLEY AND MILLIE (SISTERS) HAVE CALLED AND HAVE BEEN UPDATED. MOTHER HAS CALLED AND WAS UPDATED BY DR SHERIDAN. HE IS CURRENTLY IN THE CHAIR. CALL LIGHT WITHIN REACH. PHONE WITHIN REACH.
--- NOTE | 2019-05-08 19:00 | NUR ---
ASSUMED PT CARE FROM OTONIEL VENEGAS PT SITTING IN CHAIR. ALERT AND ORIENTED. PLEASANT AND COOPERATIVE WITH CARES. ABLE TO MAKE NEEDS KNOWN. CALL LIGHT WITHIN REACH. BEDSIDE REPORT GIVEN. PT IS SALINE LOCKED AT THIS TIME AND CONDOM CATH IS PATENT AND DRAINING DARK MAHNAZ/YELLOW COLORED URINE TO GRAVITY.
--- NOTE | 2019-05-08 21:15 | NUR ---
TAB ALARM PLACED PT FOUND TRANSFERRING TO TOILET BY SELF WITH NO ASSIST. TANGLED GOWN AND ATTENDS WRAPPED AROUND FEET AND CONDOM CATH TUBING DRAGGING ON FLOOR. PT HIGH RISK FOR FALLS AND STATED HE KNOWS HOW TO USE THE CALL LIGHT, BUT IT WAS AN "EMERGENCY". PT HAS BEEN HAVING LOOSE STOOL D/T LACTULOSE. CLEANED PT UP AND ASSISTED BACK TO RECLINER. DISCONTINUED CONDOM CATH D/T PT'S HIGH RISK OF FALLING. PLACED URINAL AT BEDSIDE. TAB ALARM IN PLACE. WILL CONTINUE TO MONITOR.
--- NOTE | 2019-05-09 08:45 | NUR ---
ASSUMED CARE OF PT. PT IS SITTING UP IN BED, NO S/S OF DISTESS. PT IS ALERT AND ORIENTED, PLEASENT AND COOPERATIVE. PT DENIES PAIN/DISCOMFORT, SOB OR NAUSEA/EMESIS. HT'S REG 90'S, B/P 135/89, AFEBRILE, SPO2 100% RA. LUNGS: DIMINISHED BASES, RESP UNLABORED. ABD: SOFT WITH POSITIVE BT'S, NON TENDER. EXT: NO EDEMA, SENSATION INTACT. PT REPOSITIONS SELF IN BED. PT TOOK BREAKFAST WITHOUT ISSUES. L UPPER ARM IV REMOVED PER PT REQUEST, CANNULA INTACT.
--- NOTE | 2019-05-09 10:40 | NUR ---
PT UP TO BATHROOM, VOIDED QS WITH POSITIVE BM, GAIT STEADY. PT CONTINUES TO DENY PAIN, SOB OR NAUSEA/EMESIS.
--- NOTE | 2019-05-09 12:15 | NUR ---
PT TOOK LUNCH WITHOUT PROBELM. PHYSICAL THERAPY IN ROOM TO WORK WITH PT.
--- NOTE | 2019-05-09 12:45 | NUR ---
REPORT CALLED TO [facility]; ALL QUESTIONS ANSWERED. PT WAS TRANSFERRED TO 325 VIA W/C, CONDITION STABLE.
--- NOTE | 2019-05-09 18:09 | NUR ---
SHIFT SUMMARY PT A/O X 4. MAKES NEEDS KNOWN. CALLS APPROPRIATELY. AMBULATES IN ROOM/BATHROOM PRIVI. PT MOTIVATED TO RETURN HOME. VSS AT THIS TIME. LN TO CONTINUE TO MONITOR. THIS PT WAS AN ICU TX MID SHIFT.
--- NOTE | 2019-05-10 03:29 | NUR ---
SHIFT SUMMARY ASSUMED CARE PF PT AT 1900. PT IS A/O X4, DENIES N/T IN EXTREMITIES. HEART SOUNDS REGULAR, LUNG SOUNDS HAVE FINE CRACKLES AT THE BASES, DENIES SOB/CP AT THIS TIME. PT IS INDEPENDENT IN ROOM, PT PERFORMS OWN ADLS. PT TOOK A SHOWER TONIGHT DUE TO NOT BEING ABLE TO SLEEP. PT WANTS TO HAVE HIS IV TAKEN OUT BECAUSE IT ANNOYS HIM. PT IS EAGER TO GO HOME, PT STATES THAT HIS FAMILY IS SUPPOSE TO TAKE HIM TO [place] WHERE HE WILL STAY WITH HIS SISTER AND HIS 15 MONTH OLD DAUGHTER. NO ACUTE EVENTS DURING THE NIGHT, PT DIDNT SLEEP AT ALL DURING THE NIGHT. CALL LIGHT IN REACH, BED IN LOWEST POSTION, WILL CONTINUE TO [facility] UNTIL DAYSHIFT NURSE ARRIVES.
[2019-05-10] MEDS ORDERED: HYDROCODONE-AC1 EAC1 PO (11:42)
[2019-05-10] MEDS ORDERED: OXYC5 PO (11:43)
--- NOTE | 2019-05-10 18:13 | NUR ---
SHIFT SUMMARY PT A/O X 4. MAKES NEEDS KNOWN. AMBULATES IN ROOM SAFELY, CALLS APPROPRIATELY. PT MOTIVATED TO GO HOME. MEDS ADMINISTERED WITHOUT ASE OBSERVED. VSS. LN TO CONTINUE TO MONITOR.
--- NOTE | 2019-05-11 02:58 | NUR ---
SHIFT SUMMARY ASSUMED CARE OF PT AT 1900. PT IS A/OX4, DENIES N/T IN EXTREMITIES. HEART SOUNDS REGULAR, LUNG SOUNDS CLEAR. PT STATES THAT HIS ONLY COMPLAINT IS THAT HIS IV IS BOTHERING HIM AND HE WANTS TO GO HOME. AFTER PT SHOWERED PT STATED THAT HE WANTED THE IV TO COME OUT, THIS NURSE NOTIFYIED THE DOCTOR THAT THE PT HAS NO IV MEDICATIONS EXCEPT FOR FOR HYPOGLYCEMIA, WHICH THE PT HAS NOT HAD ANY EPISODES SINCE HE WAS HERE, NO IV ACCESS ORDER GRANTED. PT DID NOT SLEEP AT ALL DURING THE NIGHT, PT HAD FAMILY MEMBER BRING PIZZA AND SODA FOR HIM AROUND MIDNIGHT VIA DIRECTOR ONLINE MARKETING. NO ACUTE EVENTS DURING THE NIGHT, PT IS EXPECTED TO GO HOME IN AM IF MORNING LABS ARE STABLE. CALL LIGHT IN REACH, BED IN LOWEST POSITION, WILL CONTINUE TO MONITOR UNTIL DAYSHIFT NURSE ARRIVES.
[2019-05-11 05:01] LABS: BASOPHILS ABSOLUTE AUTO 0.03 K/mm3 (0.00-0.23); BASOPHILS PERCENT AUTO 1 % (0-2); EOSINOPHILS PERCENT AUTO 3 % (0-6); Hematocrit 28.2 % (37.0-53.0); IMMATURE GRAN ABSOLUTE AUTO 0.02 K/mm3 (0.00-0.10); IMMATURE GRAN PERCENT AUTO 1 % (0-1); LYMPHOCYTES ABSOLUTE AUTO 0.89 K/mm3 (0.84-5.20); LYMPHOCYTES PERCENT AUTO 30 % (21-46); MONOCYTES ABSOLUTE AUTO 0.37 K/mm3 (0.16-1.47); MONOCYTES PERCENT AUTO 13 % (4-13); Mean Corpuscular HGB 33.7 pg (26.0-34.0); Mean Corpuscular HGB Conc 35.5 g/dL (31.5-36.5); Mean Corpuscular Volume 95 fL (80-100); Mean Platelet Volume 11.8 fL (9.1-12.4); NEUTROPHILS ABSOLUTE AUTO 1.53 K/mm3 (1.96-9.15); NEUTROPHILS PERCENT AUTO 52 % (41-73); RDW Coefficient Variation 15.5 % (11.7-14.2); RDW Standard Deviation 52.9 fL (35.1-46.3); Red Blood Cell Count 2.97 M/mm3 (4.30-5.90); White Blood Cell Count 2.94 K/mm3 (4.00-11.30)
[2019-05-11 05:04] LABS: Platelet Count 46 K/mm3 (150-400)
[2019-05-11 05:22] LABS: Anion Gap 5 mmol/L (6-16); Blood Urea Nitrogen 24 mg/dL (8-24); Bun/Creatinine Ratio 30.8 (12.0-20.0); CO2, Blood 27 mmol/L (21-32); Chloride, Blood 105 mmol/L (98-108); Creatinine, Blood 0.78 mg/dL (0.60-1.20); Glomerular Filtration Rate >60 (60-); Glucose, Blood 305 mg/dL (70-99); Potassium, Blood 3.9 mmol/L (3.5-5.5); Sodium, Blood 137 mmol/L (136-145)
[2019-05-11] MEDS ORDERED: GLIP5 PO (09:28)
[2019-05-11] MEDS ORDERED: TRAM50 PO (09:29)
--- NOTE | 2019-05-11 09:55 | NUR ---
PT DISCHARGE INSTRUCTIONS REVIEWED WITH PT. NO IV PRESENT. RX FAXED TO [facility] PER PT REQUEST. PT EDUCATED IN DEPTH REGARDING DRUG AND ALOCOHOL ABUSE AND STOPPING, PT REPORTS HE IS MOVING TO [place] TO LIVE WITH HIS MOTHER TO GET AWAY FROM IT. PT REFUSED HARD SCRIPT FOR TRAMADOL, REPORTS IT DOES NOT WORK FOR HIM AND HE WILL TALK TO PCP ABOUT IT. HOME MEDS GIVEN TO PT. PT DC;D HOME WITH SISTER AT 0947. PT ESCORTED OUT.
== END 2019-05-11 09:47 | disposition home or self-care (01) | DRG 208 ==
LOC: ER 13:21 → ICUE 16:13 → MEDS 16:13 → ICUE 05-04 00:43 → ICUW 05-05 14:34 → ICUE 05-05 14:35 → MEDS 05-09 12:55
PROVIDERS: Emergency Medicine; Internal Medicine; Internal Medicine Critical Care Medicine; Internal Medicine Pulmonary Disease; Nurse Practitioner Acute Care; ADMIT Internal Medicine
PROC: 0BH17EZ Insertion of Endotracheal Airway into Trachea, Via Natural or Artificial Opening (ICD-10-PCS; principal; 2019-05-04)
PROC: 5A1945Z Respiratory Ventilation, 24-96 Consecutive Hours (ICD-10-PCS; 2019-05-04)
DX: J96.00 Acute respiratory failure, unspecified whether with hypoxia or hypercapnia (principal); D61.818 Other pancytopenia; I85.10 Secondary esophageal varices without bleeding; K72.90 Hepatic failure, unspecified without coma; K74.60 Unspecified cirrhosis of liver; F15.99 Other stimulant use, unspecified with unspecified stimulant-induced disorder; K64.9 Unspecified hemorrhoids; E11.65 Type 2 diabetes mellitus with hyperglycemia; Z22.322 Carrier or suspected carrier of Methicillin resistant Staphylococcus aureus
CPT/HCPCS: 31500; 31720; 36415; 36600; 51701; 51702; 70450; 71045; 80048; 80053; 81001; 82140; 82803; 82947; 83605; 83690; 83735; 84100; 84484; 85025; 85610; 86850; 86900; 86901; 87040; 87070; 87077; 87086; 87147; 87186; 87205; 93005; 93010; 94002; 94003; 96361; 96374; 96375; 97110; 97116; 97163; 97530; 99285-25; A9270-GY; C9113; G0480; J0330; J0696; J1200; J1630; J1940; J2060; J2310; J2704; J3010; J3411; J3475; J7030; J7042; J7050; J7120

== ENCOUNTER 2019-05-16 16:46 | Inpatient (IN) | payer OTHER ==
[~2019-05-16] VITALS: Ht 180.3 cm; Wt 82.0 kg
[~2019-05-16 16:46] MED LIST changes: +FURO40 PO; +GLIP5 PO; +HYDROCODONE-AC1 EAC1 PO; +Nadolol40 MG PO; +SPIR50 PO; +TRAM50 PO
[2019-05-16 17:46] LABS: BASOPHILS ABSOLUTE AUTO 0.03 K/mm3 (0.00-0.23); BASOPHILS PERCENT AUTO 1 % (0-2); EOSINOPHILS ABSOLUTE AUTO 0.12 K/mm3 (0.00-0.68); EOSINOPHILS PERCENT AUTO 3 % (0-6); Hematocrit 26.5 % (37.0-53.0); Hemoglobin 9.2 g/dL (13.5-17.5); IMMATURE GRAN ABSOLUTE AUTO 0.04 K/mm3 (0.00-0.10); IMMATURE GRAN PERCENT AUTO 1 % (0-1); LYMPHOCYTES ABSOLUTE AUTO 0.47 K/mm3 (0.84-5.20); LYMPHOCYTES PERCENT AUTO 11 % (21-46); MONOCYTES ABSOLUTE AUTO 0.35 K/mm3 (0.16-1.47); MONOCYTES PERCENT AUTO 8 % (4-13); Mean Corpuscular HGB 33.6 pg (26.0-34.0); Mean Corpuscular HGB Conc 34.7 g/dL (31.5-36.5); Mean Corpuscular Volume 97 fL (80-100); Mean Platelet Volume 11.8 fL (9.1-12.4); NEUTROPHILS ABSOLUTE AUTO 3.21 K/mm3 (1.96-9.15); NEUTROPHILS PERCENT AUTO 76 % (41-73); RDW Coefficient Variation 16.5 % (11.7-14.2); RDW Standard Deviation 58.3 fL (35.1-46.3); Red Blood Cell Count 2.74 M/mm3 (4.30-5.90); White Blood Cell Count 4.22 K/mm3 (4.00-11.30)
[2019-05-16 17:54] LABS: Platelet Count 42 K/mm3 (150-400)
[2019-05-16 18:01] LABS: Alanine Aminotransfer (ALT/SGP 44 U/L (12-78); Albumin, Blood 1.6 g/dL (3.4-5.0); Albumin/Globulin Ratio 0.4 (0.8-1.8); Alk Phos 88 U/L (50-136); Anion Gap 4 mmol/L (6-16); Aspartate Aminotrans (AST/SGOT 62 U/L (12-37); Bilirubin, Total 2.7 mg/dL (0.1-1.0); Blood Urea Nitrogen 22 mg/dL (8-24); Bun/Creatinine Ratio 22.8 (12.0-20.0); CO2, Blood 28 mmol/L (21-32); Calcium, Blood 7.7 mg/dL (8.5-10.1); Chloride, Blood 98 mmol/L (98-108); Creatinine, Blood 0.97 mg/dL (0.60-1.20); Globulin, Blood 4.5 g/dL (2.2-4.0); Glomerular Filtration Rate >60 (60-); Glucose, Blood 406 mg/dL (70-99); Potassium, Blood 4.6 mmol/L (3.5-5.5); Sodium, Blood 130 mmol/L (136-145); Total Protein, Blood 6.1 g/dL (6.4-8.2)
[2019-05-16 18:49] LABS: Appearance, Synovial Fluid Turbid (Clear); Color, Synovial Fluid Yellow (None-P Yel)
[2019-05-16 19:13] LABS: Lymphs, Synovial Fluid 10 % (0-15); Monocytes/Macrophages, Synovia 7 % (0-65); Neutrophils, Synovial Fluid 83 % (0-24)
--- NOTE | 2019-05-16 23:45 | NUR ---
REPORT RECEIVED FROM [facility] ED RN. PT TRANSFERRED TO MEDICAL FLOOR VIA GURNEY. ASSUMED CARE OF PT. NO S/S ACUTE DISTRESS NOTED. CALL LIGHT AND POSSESSIONS IN REACH, WILL CONTINUE TO MONITOR.
--- NOTE | 2019-05-17 02:35 | NUR ---
SPOKE TO DR. SHI REGARDING PT'S ELEVATED TEMPERATURE. ORDERS RECEIVED.
[2019-05-17 05:00] LABS: Hematocrit 23.2 % (37.0-53.0); Hemoglobin 8.1 g/dL (13.5-17.5); Mean Corpuscular HGB 33.6 pg (26.0-34.0); Mean Corpuscular HGB Conc 34.9 g/dL (31.5-36.5); Mean Corpuscular Volume 96 fL (80-100); Mean Platelet Volume 12.5 fL (9.1-12.4); RDW Coefficient Variation 16.3 % (11.7-14.2); RDW Standard Deviation 57.6 fL (35.1-46.3); Red Blood Cell Count 2.41 M/mm3 (4.30-5.90); White Blood Cell Count 2.38 K/mm3 (4.00-11.30)
[2019-05-17 05:05] LABS: Platelet Count 35 K/mm3 (150-400)
[2019-05-17 05:19] LABS: Alanine Aminotransfer (ALT/SGP 40 U/L (12-78); Albumin, Blood 1.9 g/dL (3.4-5.0); Albumin/Globulin Ratio 0.5 (0.8-1.8); Alk Phos 77 U/L (50-136); Anion Gap 4 mmol/L (6-16); Aspartate Aminotrans (AST/SGOT 54 U/L (12-37); Bilirubin, Total 2.2 mg/dL (0.1-1.0); Blood Urea Nitrogen 23 mg/dL (8-24); Bun/Creatinine Ratio 22.1 (12.0-20.0); CO2, Blood 29 mmol/L (21-32); Calcium, Blood 7.6 mg/dL (8.5-10.1); Chloride, Blood 101 mmol/L (98-108); Creatinine, Blood 1.04 mg/dL (0.60-1.20); Globulin, Blood 3.7 g/dL (2.2-4.0); Glomerular Filtration Rate >60 (60-); Glucose, Blood 252 mg/dL (70-99); Potassium, Blood 4.2 mmol/L (3.5-5.5); Sodium, Blood 134 mmol/L (136-145); Total Protein, Blood 5.6 g/dL (6.4-8.2)
--- NOTE | 2019-05-17 05:31 | NUR ---
SPOKE TO DR. SHI REGARDING PT'S PLATELET LEVEL. NO NEW ORDERS RECEIVED AT THIS TIME.
--- NOTE | 2019-05-17 12:52 | NUR ---
HAD SECOND SHOWER FOR TODAY. ANGRY ORTHO HAS NOT COME IN TO SEE PATIENT YET. ADVISED MD HAS OTHER PATIENTS TO SEE AND WILL SEE HIM TODAY.
--- NOTE | 2019-05-17 14:04 | NUR ---
REHANALA TO LEFT ELBOW. TO DO PROCEDURE IN ROOM ONCE AREA NUMBED UP.
--- NOTE | 2019-05-17 16:27 | NUR ---
ALERT. ORIENTED. INDEPENDENT IN ROOM W/STEADY GAIT. UNLABORED RESPIRATIONS. DR. TAVAREZ I&D LEFT ELBOW W/LAB BEING SENT. MEDICATED FOR PAIN WITH RELIEF LASTING SHORT TIME. REFUSES TRAMADOL. PATIENT HOPING TO GO HOME TOMORROW. WCTM.
--- NOTE | 2019-05-17 18:18 | NUR ---
EXPLAINED TO PATIENT ABOUT PAIN MEDS AND WHY MD DID NOT WANT HIM TO HAVE A LOT OF NARCOTICS. PATIENT WAS IN NOT VERY LONG AGO FOR HEPATIC ENCEPHALOPATHY. WILL LET NIGHT RN KNOW SHE NEEDS TO REENFORCE THIS.
[2019-05-17 22:31] LABS: Vancomycin, Trough 14.2 ug/mL (5.0-10.0)
[2019-05-18 04:31] LABS: BASOPHILS ABSOLUTE AUTO 0.01 K/mm3 (0.00-0.23); BASOPHILS PERCENT AUTO 0 % (0-2); EOSINOPHILS ABSOLUTE AUTO 0.09 K/mm3 (0.00-0.68); EOSINOPHILS PERCENT AUTO 4 % (0-6); Hematocrit 23.8 % (37.0-53.0); Hemoglobin 8.3 g/dL (13.5-17.5); IMMATURE GRAN ABSOLUTE AUTO 0.01 K/mm3 (0.00-0.10); IMMATURE GRAN PERCENT AUTO 0 % (0-1); LYMPHOCYTES ABSOLUTE AUTO 0.45 K/mm3 (0.84-5.20); LYMPHOCYTES PERCENT AUTO 20 % (21-46); MONOCYTES ABSOLUTE AUTO 0.31 K/mm3 (0.16-1.47); MONOCYTES PERCENT AUTO 14 % (4-13); Mean Corpuscular HGB 33.7 pg (26.0-34.0); Mean Corpuscular HGB Conc 34.9 g/dL (31.5-36.5); Mean Corpuscular Volume 97 fL (80-100); Mean Platelet Volume 11.6 fL (9.1-12.4); NEUTROPHILS ABSOLUTE AUTO 1.38 K/mm3 (1.96-9.15); NEUTROPHILS PERCENT AUTO 61 % (41-73); RDW Standard Deviation 56.3 fL (35.1-46.3); Red Blood Cell Count 2.46 M/mm3 (4.30-5.90); White Blood Cell Count 2.25 K/mm3 (4.00-11.30)
[2019-05-18 04:36] LABS: Platelet Count 37 K/mm3 (150-400)
--- NOTE | 2019-05-18 04:49 | NUR ---
PT A/O X4. INDEPENDENT IN ROOM. PT DENIES CHEST PAIN, NAUSEA, DIZZINESS. PT EXPRESSED THERE WERE "BURNING PAIN" IN PT'S L ARM. PT RECIEVED PAIN MEDS PER EMAR A FEW TIMES ON MY SHIFT. PT EDUCATED TO ELEVATE L ARM ON PILLOW TO HELP DECREASE SWELLING AND PAIN. PT EXPRESSED CONCERN THAT HE IS AFRIAD THIS PAIN WILL CONTINUE WHEN HE GET DISCHARGED. I EMPHATHIZED WITH PT AND EDUCATED PT TO KEEP SITE CLEAN AND ELEVATE ARM WHENEVER POSSIBLE. CIRCULATION IN L FINGERS RETURNED IN LESS THAN 3 SECS, SENSETION AND MOBILITY OF L FINGER INTACT. PT AFEBRILE THROUGHOUT THE NIGHT. PT'S BLOOD SUGAR BEFORE BED WAS 309. ONCALL PROVIDER DR. FAN MADE AWARE. NO NEW ORDERS. VSS. CALL LIGHT WITHIN REACH. 0434 CRITICAL PLATETLET LAB VALUE OF 37. MADE NUCLEAR UNIT OPERATOR AWARE. THIS IS TRENDING IN THE RIGHT DIRECTION.
[2019-05-18] MEDS ORDERED: TRAM50 PO (11:48)
[2019-05-18] MEDS ORDERED: Bactrim Ds Tab1 EACH PO (11:49)
--- NOTE | 2019-05-18 13:43 | NUR ---
PT AO AND SEEMED COOPERATIVE OF CARE TODAY. WAS INDEPENDENT IN ROOM. PT STARTED TO PACE IN ROOM TODAY AND THEN STARTED STATING HE WAS DISCHARGING TODAY BEFORE DOCTOR HAD SEEN PT. ONCE PT WAS SEEN BY ALMA TAVAREZ HE BECAME VERY RESTLESS AND WANTED TO LEAVE IMMEDIATELY. THIS HOPPER OPERATOR TRIED TO TALK PT INTO HAVING HIS IV ANTIBOTIC AND PT STATED HE WOULD NOT AND WAS GOING TO LEAVE. THIS HOPPER OPERATOR TALKED HIM INTO WAITNG AND THEN LET DR PARKS KNOW PT WANTED TO LEAVE. PAPERWORK WAS PUT THROUGH IMMEDIATELY AND JUST PAPER WORK WAS DONE PT WALKED OUT AND BEFORE IT COULD BE REVIEWED OR SIGNED. MEDICATION WAS FAXED TO PHARMACY. DR PARKS WAS NOTIFIED.
== END 2019-05-18 11:55 | disposition home or self-care (01) | DRG 854 ==
LOC: ER 16:46 → MEDS 16:47
PROVIDERS: Emergency Medicine; Internal Medicine; ADMIT Internal Medicine
PROC: 0R9M3ZX Drainage of Left Elbow Joint, Percutaneous Approach, Diagnostic (ICD-10-PCS; principal; 2019-05-17)
PROC: 0JBH0ZZ Excision of Left Lower Arm Subcutaneous Tissue and Fascia, Open Approach (ICD-10-PCS; 2019-05-17)
DX: A41.01 Sepsis due to Methicillin susceptible Staphylococcus aureus (principal); D61.818 Other pancytopenia; M71.022 Abscess of bursa, left elbow; R26.89 Other abnormalities of gait and mobility; M71.522 Other bursitis, not elsewhere classified, left elbow; B19.20 Unspecified viral hepatitis C without hepatic coma; F17.210 Nicotine dependence, cigarettes, uncomplicated; E11.65 Type 2 diabetes mellitus with hyperglycemia; K70.30 Alcoholic cirrhosis of liver without ascites; E88.09 Other disorders of plasma-protein metabolism, not elsewhere classified
CPT/HCPCS: 10061; 36415; 80053; 80202; 82140; 82947; 83036; 85025; 85027; 85651; 86141; 87070; 87075; 87077; 87147; 87186; 87205; 89051; 93971; 99284-25; A9270; A9270-GY; J0692; J3010; J3370; J7030; P9046

== ENCOUNTER 2019-06-25 18:17 | Observation (INO) | payer OTHER ==
[~2019-06-25] VITALS: Ht 177.8 cm; Wt 73.9 kg
[~2019-06-25 18:17] MED LIST changes: +Bactrim Ds Tab1 EACH PO; -FURO40 PO; -Nadolol40 MG PO; -SPIR50 PO
[2019-06-25 19:24] LABS: Source, Urine Catheter
[2019-06-25 19:36] LABS: Bilirubin, Urine Neg (Neg); Blood, Urine 3+ (Neg); Glucose Qualitative, Urine Neg (Neg); Ketones, Urine Neg (Neg); Leukocyte Esterase, Urine Neg (Neg); Nitrite, Urine Neg (Neg); Protein, Urine Neg (Neg); Urobilinogen, Urine NORM (Normal)
[2019-06-25] MEDS ORDERED: Nadolol40 MG PO (19:50)
[2019-06-25] MEDS ORDERED: FURO40 PO (19:50)
[2019-06-25] MEDS ORDERED: ALDACTONE100 MG PO (19:50)
[2019-06-25 20:00] LABS: U Amphetamine Screen DETECTED; U Cocaine Screen DETECTED; U Methamphetamine Screen DETECTED; U Opiates Screen DETECTED
[2019-06-25 20:01] LABS: U Barbituate Screen Not Detected; U Benzodiazapine Screen Not Detected; U Buprenorphine Screen Not Detected; U Cannabinoids Screen Not Detected; U Methadone Screen Not Detected; U Oxycodone Screen Not Detected; U Phencyclidine Screen Not Detected; U Propoxyphene Screen Not Detected
[2019-06-25 20:03] LABS: Appearance, Urine Hazy (Clear); Color, Urine Yellow (P-Yellow)
[2019-06-25 20:05] LABS: Bacteria Not Seen /hpf; Squamous Epithelial Cells Mod /hpf (Few); Transitional Epithelial Cells Rare /hpf (0-Rare); White Blood Cells, Urine Not Seen /hpf (0-5)
[2019-06-25 20:22] LABS: BASOPHILS ABSOLUTE AUTO 0.02 K/mm3 (0.00-0.23); BASOPHILS PERCENT AUTO 1 % (0-2); EOSINOPHILS ABSOLUTE AUTO 0.03 K/mm3 (0.00-0.68); EOSINOPHILS PERCENT AUTO 1 % (0-6); Hemoglobin 11.8 g/dL (13.5-17.5); IMMATURE GRAN ABSOLUTE AUTO 0.01 K/mm3 (0.00-0.10); IMMATURE GRAN PERCENT AUTO 0 % (0-1); LYMPHOCYTES ABSOLUTE AUTO 0.85 K/mm3 (0.84-5.20); LYMPHOCYTES PERCENT AUTO 22 % (21-46); MONOCYTES ABSOLUTE AUTO 0.28 K/mm3 (0.16-1.47); MONOCYTES PERCENT AUTO 7 % (4-13); Mean Corpuscular HGB 33.6 pg (26.0-34.0); Mean Corpuscular HGB Conc 35.8 g/dL (31.5-36.5); Mean Corpuscular Volume 94 fL (80-100); Mean Platelet Volume 10.7 fL (9.1-12.4); NEUTROPHILS ABSOLUTE AUTO 2.63 K/mm3 (1.96-9.15); NEUTROPHILS PERCENT AUTO 69 % (41-73); Platelet Count 66 K/mm3 (150-400); RDW Coefficient Variation 14.6 % (11.7-14.2); RDW Standard Deviation 50.2 fL (35.1-46.3); Red Blood Cell Count 3.51 M/mm3 (4.30-5.90); White Blood Cell Count 3.82 K/mm3 (4.00-11.30)
[2019-06-25 20:40] LABS: Alanine Aminotransfer (ALT/SGP 97 U/L (12-78); Albumin, Blood 2.7 g/dL (3.4-5.0); Albumin/Globulin Ratio 0.4 (0.8-1.8); Alk Phos 143 U/L (50-136); Anion Gap 6 mmol/L (6-16); Aspartate Aminotrans (AST/SGOT 140 U/L (12-37); Bilirubin, Total 2.3 mg/dL (0.1-1.0); Blood Urea Nitrogen 30 mg/dL (8-24); Bun/Creatinine Ratio 25.2 (12.0-20.0); CO2, Blood 27 mmol/L (21-32); Calcium, Blood 9.4 mg/dL (8.5-10.1); Chloride, Blood 105 mmol/L (98-108); Creatinine, Blood 1.19 mg/dL (0.60-1.20); Globulin, Blood 6.5 g/dL (2.2-4.0); Glomerular Filtration Rate >60 (60-); Glucose, Blood 218 mg/dL (70-99); Magnesium, Blood 2.3 mg/dL (1.6-2.4); Potassium, Blood 4.4 mmol/L (3.5-5.5); Sodium, Blood 138 mmol/L (136-145); Total Protein, Blood 9.2 g/dL (6.4-8.2)
[2019-06-25 20:42] LABS: Ethanol (Alcohol), Blood, Med <3 mg/dL
[2019-06-25 20:43] LABS: Acetaminophen, Random <2.0 ug/mL (10.0-30.0); Salicylate <1.7 mg/dL (2.8-20.0)
[2019-06-25 22:09] LABS: International Normalized Ratio 1.07; Prothrombin Time Results 11.4 Sec (9.7-11.5)
[2019-06-26] MEDS ORDERED: GLIP5 PO (00:02)
--- NOTE | 2019-06-26 05:55 | NUR ---
SHIFT SUMMARY: PT ADMITTED TO MEDICAL UNIT FROM THE ER [facility]. PT VERBALIZING FRUSTRATIONS BUT DOES NOT ANSWER QUESTIONS. SPONTANEOUSLY GETS UP OOB AND SETS ALARM OFF WHEN HE IS HAVING A BM. FOUND UNSTEADILY WALKING AROUND ROOM LOOKING FOR TOILET WITHIN MOMENTS OF ALARM SOUNDING. STOOL IS LIQUID D/T LACTULOSE AND PT IS MOSTLY INCONTINENT A RESULT. WEARING ATTENDS. IV FLUIDS INFUSING ORDERED CONTINUOUSLY. PT HAS OTHERWISE SLEPT QUIETLY THROUGH MUCH OF THE NIGHT W/OCCASIONAL MOANING. BED LOW, BED ALARM ON. WILL CONT TO MONITOR.
--- NOTE | 2019-06-26 10:52 | NUR ---
HE HAS BEEN SLEEPING BUT IS EASILY AROUSABLE. HE SPOKE WITH A FRIEND ON THE TELEPHONE WHEN SHE CALLED INTO THE ROOM. HE IS VOICING NOW THAT HE IS HUNGRY. HAS NOT YET ROUNDED. IVF'S INFUSING. BED ALARM ON. HE WAS VERY IMPULSIVE DURING THE NIGHT BUT HAD URGENT STOOL D/T LACTULOSE. HE DRANK ANOTHER DOSE OF LACTULOSE THIS AM.
--- NOTE | 2019-06-26 12:31 | NUR ---
FOUND CRYING BEFORE LUNCH. HE SAID HE'S GOING TO BUT WHEN I ASKED HIM WHY HE SAID THAT HE DIDN'T HAVE AN ANSWER. I PUT A BANDAID ON HIS L ELBOW OVER AN OLD WOUND THAT IS RED. HE HAS TATTOOS COVERING NEARLY ALL HIS BODY SURFACE. HE IS MORE ALERT AND GOT UP TO THE CHAIR WITH SBA FOR LUNCH. HE DRANK 2 CRANBERRY JUICES FIRST THEN STARTED ON LUNCH. HE WAS HUNGRY. RE VISITED HIM AND WILL DC HIM HOME. HE IS OK WITH THAT. HE DRANK HIS LACTULOSE WELL. WILL DC IVF'S WHEN I GET A DC ORDER. HE WANTS TO SHOWER BEFORE HE GOES HOME. HE SAYS [facility] WILL PICK HIM UP.
[2019-06-26] MEDS ORDERED: Enulose10 GM/15 M PO (13:19)
--- NOTE | 2019-06-26 15:15 | NUR ---
Spiritual care visit conducted. Patient's RN, Argenis, tells me about patient and his possible need for spiritual care, even though he will be DC soon. As I enter patient's room, patient is sitting on EOB with his face in his hands and he is crying. Patient tells me about his personal struggles, his fears and about the poor choices he has made. I talk about vamsi, freedom and God's love. I talk about the opportunity to leave a positive legacy in his daughter's life and the power of finishing strong. I listen empathically, reinforce helpful attitudes and practices, recite Bible verses that fit in patient's belief system and that are on-point with patient's spiritual needs, hear confession and provide pastoral guidance and prayer. Patient responds well and displays evidence of catharsis and improved hope. Patient verbalizes appreciation for the visit.
--- NOTE | 2019-06-26 15:16 | NUR ---
DISCHARGED TO HOME WITH BELONGINGS AND INSTRUCTIONS. NO COMPLAINTS.HE IS ABLE TO AMBULATE INDEPENDENTLY.
== END 2019-06-26 15:08 | disposition home or self-care (01) ==
LOC: ER 18:17 → MEDS 18:18 → ER 23:12 → MEDS 23:12
PROVIDERS: Emergency Medicine; ADMIT Internal Medicine
DX: K72.90 Hepatic failure, unspecified without coma (principal); E11.9 Type 2 diabetes mellitus without complications; C22.7 Other specified carcinomas of liver; K74.60 Unspecified cirrhosis of liver; B19.20 Unspecified viral hepatitis C without hepatic coma; F15.10 Other stimulant abuse, uncomplicated; F11.10 Opioid abuse, uncomplicated; F14.10 Cocaine abuse, uncomplicated; Z79.899 Other long term (current) drug therapy; Z79.84 Long term (current) use of oral hypoglycemic drugs
CPT/HCPCS: 36415; 51701; 70450; 71045; 74018; 74176; 80053; 81001; 82140; 82947; 83036; 83690; 83735; 85025; 85610; 93005; 93010; 96374-59; 99285-25; G0480; J1815; J2310

== ENCOUNTER 2019-07-09 15:54 | Emergency (ER) | payer OTHER ==
[~2019-07-09 15:54] MED LIST changes: +ALDACTONE100 MG PO; +Enulose10 GM/15 M PO; +FURO40 PO; +Nadolol40 MG PO
== END 2019-07-09 16:00 | disposition left against medical advice (07) ==
LOC: ER 15:54
DX: Z53.21 Procedure and treatment not carried out due to patient leaving prior to being seen by health care provider (principal)

== ENCOUNTER 2020-02-20 01:23 | Emergency (ER) | payer OTHER ==
[~2020-02-20] VITALS: Ht 170.2 cm; Wt 74.8 kg
[2020-02-20 01:35] LABS: Calcium, Ionized (POC) 1.13 mmol/L (1.10-1.46); Chloride (POC) 96 mmol/L (98-108); Creatinine (POC) 1.3 mg/dL (0.8-1.3); Glucose (ISTAT POC) 242 mg/dL (70-99); Hemoglobin (POC) 9.5 g/dL (13.5-17.5); Potassium (POC) 4.5 mmol/L (3.5-5.5); Sodium (POC) 132 mmol/L (135-148); Total CO2 (POC) 28 mmol/L (21-32)
[2020-02-20 01:42] LABS: PCO2 Arterial 46.8 mmHg (35-45); PO2 Arterial 136 mmHg (80-100); pH Blood Arterial 7.34 (7.35-7.45)
[2020-02-20 01:51] LABS: BASOPHILS ABSOLUTE AUTO 0.04 K/mm3 (0.00-0.23); BASOPHILS PERCENT AUTO 1 % (0-2); EOSINOPHILS ABSOLUTE AUTO 0.09 K/mm3 (0.00-0.68); EOSINOPHILS PERCENT AUTO 2 % (0-6); Hematocrit 27.1 % (37.0-53.0); Hemoglobin 9.4 g/dL (13.5-17.5); IMMATURE GRAN ABSOLUTE AUTO 0.08 K/mm3 (0.00-0.10); IMMATURE GRAN PERCENT AUTO 1 % (0-1); LYMPHOCYTES ABSOLUTE AUTO 1.36 K/mm3 (0.84-5.20); LYMPHOCYTES PERCENT AUTO 24 % (21-46); MONOCYTES PERCENT AUTO 7 % (4-13); Mean Corpuscular HGB 33.7 pg (26.0-34.0); Mean Corpuscular HGB Conc 34.7 g/dL (31.5-36.5); Mean Corpuscular Volume 97 fL (80-100); Mean Platelet Volume 11.8 fL (9.1-12.4); NEUTROPHILS ABSOLUTE AUTO 3.69 K/mm3 (1.96-9.15); NEUTROPHILS PERCENT AUTO 65 % (41-73); Platelet Count 63 K/mm3 (150-400); RDW Coefficient Variation 14.6 % (11.7-14.2); RDW Standard Deviation 51.7 fL (35.1-46.3); Red Blood Cell Count 2.79 M/mm3 (4.30-5.90); White Blood Cell Count 5.66 K/mm3 (4.00-11.30)
[2020-02-20 02:03] LABS: International Normalized Ratio 1.16; Prothrombin Time Results 12.3 Sec (9.7-11.5)
[2020-02-20 02:08] LABS: Alanine Aminotransfer (ALT/SGP 143 U/L (12-78); Albumin, Blood 2.1 g/dL (3.4-5.0); Albumin/Globulin Ratio 0.4 (0.8-1.8); Alk Phos 156 U/L (50-136); Anion Gap 7 mmol/L (6-16); Aspartate Aminotrans (AST/SGOT 333 U/L (12-37); Beta HCG, Quantitative, Serum <1 mIU/mL (0-1); Bilirubin, Total 2.4 mg/dL (0.1-1.0); Blood Urea Nitrogen 25 mg/dL (8-24); Bun/Creatinine Ratio 21.6 (12.0-20.0); CO2, Blood 26 mmol/L (21-32); Chloride, Blood 101 mmol/L (98-108); Creatinine, Blood 1.16 mg/dL (0.60-1.20); Ethanol (Alcohol), Blood, Med 48 mg/dL; Glomerular Filtration Rate >60 (60-); Glucose, Blood 251 mg/dL (70-99); Potassium, Blood 4.5 mmol/L (3.5-5.5); Sodium, Blood 134 mmol/L (136-145); Total Protein, Blood 7.1 g/dL (6.4-8.2)
== END 2020-02-20 04:12 | disposition home or self-care (01) ==
LOC: ER 01:23
PROVIDERS: Emergency Medicine
DX: S42.121A Displaced fracture of acromial process, right shoulder, initial encounter for closed fracture (principal); S22.41XA Multiple fractures of ribs, right side, initial encounter for closed fracture; S12.100A Unspecified displaced fracture of second cervical vertebra, initial encounter for closed fracture; S12.200A Unspecified displaced fracture of third cervical vertebra, initial encounter for closed fracture; S12.300A Unspecified displaced fracture of fourth cervical vertebra, initial encounter for closed fracture; C22.9 Malignant neoplasm of liver, not specified as primary or secondary; F10.129 Alcohol abuse with intoxication, unspecified; F17.200 Nicotine dependence, unspecified, uncomplicated; Z79.84 Long term (current) use of oral hypoglycemic drugs; Z79.899 Other long term (current) drug therapy; V46.5XXA Car driver injured in collision with other nonmotor vehicle in traffic accident, initial encounter; Y92.410 Unspecified street and highway as the place of occurrence of the external cause
CPT/HCPCS: 36415; 36600; 70450; 71045; 71260; 72125; 72170; 74177; 80047; 80053; 82803; 83690; 84702; 85014; 85025; 85610; 86850; 86900; 86901; 93005; 93010; 96361; 96374-59; 96375; 96376-59; 99285-25; G0480; J2405; J3010; J7030; Q9967